=== PATIENT | female | born 1980 | race Two or more races ===

== ENCOUNTER 2019-02-02 18:32 | Inpatient (IN) | payer MEDICAID, OTHER ==
[~2019-02-02] VITALS: Ht 165.1 cm; Wt 80.4 kg
[2019-02-02] MEDS ORDERED: LISI-622 PO (20:28)
[2019-02-02] MEDS ORDERED: ATOR10TA84 PO (20:28)
[2019-02-02] MEDS ORDERED: METF-960 PO (20:29)
[2019-02-02 21:25] LABS: AMPHET/METH SCREEN,URINE NEGATIVE (NEGATIVE); BARBITURATE SCREEN, URINE NEGATIVE (NEGATIVE); BENZODIAZEPINES SCREEN,URINE NEGATIVE (NEGATIVE); CANNABINOID SCREEN,URINE NEGATIVE (NEGATIVE); COCAINE SCREEN,URINE NEGATIVE (NEGATIVE); METHADONE SCREEN, URINE NEGATIVE (NEGATIVE); OPIATE SCREEN,URINE NEGATIVE (NEGATIVE)
[2019-02-02 21:27] LABS: PHENCYCLIDINE SCREEN,URINE NEGATIVE (NEGATIVE)
[2019-02-02 21:27] LABS: GLUCOSE,POINT OF CARE 105 MG/DL (70-110)
[2019-02-02 21:39] LABS: BASOPHILS % (AUTO) 0.3 % (0.0-2.0); EOSINOPHILS % (AUTO) 2.2 % (1.0-6.0); HEMATOCRIT 39.6 % (36-46); HEMOGLOBIN 13.2 g/dL (12.0-16.0); LYMPHOCYTES % (AUTO) 28.5 % (22.0-44.0); MEAN CORPUSCULAR HEMOGLOBIN 28.7 pg (26.0-34.0); MEAN CORPUSCULAR HGB CONC 33.4 G/dL (31.0-37.0); MEAN CORPUSCULAR VOLUME 86 fL (80-100); MONOCYTES # (AUTO) 0.7 K/uL (0.1-1.0); MONOCYTES % (AUTO) 6.7 % (2.0-9.0); NEUTROPHILS # (AUTO) 6.5 K/uL (1.8-7.7); NEUTROPHILS % (AUTO) 62.3 % (40.0-70.0); PLATELET COUNT (AUTO) 304 K/uL (150-450); RED BLOOD CELL COUNT(AUTO) 4.61 MIL/uL (4.00-5.20); RED CELL DISTRIBUTION WIDTH 13.1 % (11.5-14.5)
[2019-02-02 21:42] LABS: ANION GAP 10 mmol/L (8-16); CALCIUM, TOTAL 9.1 mg/dL (8.8-10.5); CARBON DIOXIDE 27 mmol/L (22-29); CHLORIDE 103 mmol/L (98-107); CREATININE 0.65 mg/dL (0.60-1.30); GLOMERULAR FILTR. RATE CALC > 60 mL/min (>60); GLUCOSE,RANDOM 126 mg/dL (70-110); POTASSIUM 3.6 mmol/L (3.5-5.1); SODIUM SERUM 140 mmol/L (136-145); UREA NITROGEN, BLOOD 6 mg/dL (7-18)
[2019-02-02 21:54] LABS: ALANINE AMINOTRANSFERASE 31 U/L (12-78); ALBUMIN 4.4 g/dL (3.4-5.0); ALKALINE PHOSPHATASE 81 U/L (46-116); ASPARTATE AMINOTRANSFERASE 27 U/L (15-37); BILIRUBIN,TOTAL 0.5 mg/dL (0.1-1.0); HCG,QUANTITATIVE < 1 mIU/mL (0-6); TOTAL PROTEIN, SERUM 8.1 g/dL (6.4-8.2)
[2019-02-02] MEDS ORDERED: RISP4 PO (22:35)
[2019-02-02] MEDS ORDERED: BENZ1TAB10 PO (22:36)
[2019-02-02] MEDS ORDERED: GABA-531 PO (22:36)
[2019-02-02] MEDS ORDERED: LORazepam 2 MG TABLET PO PRN (22:45)
[2019-02-02] MEDS ORDERED: HALOPERIDOL 5 MG TABLET PO PRN (22:45)
[2019-02-02] MEDS ORDERED: ZOLPIDEM TARTRATE 10 MG TABLET PO PRN (22:45)
[2019-02-03 01:28] VITALS: BP 114/67
[2019-02-03] MEDS ORDERED: INFLUENZA VIRUS VACCINE QVS 2019-20 (3YR+)/PF 60 MCG/0.5 ML SYRINGE IM ONE (03:15)
[2019-02-03] MEDS ORDERED: PNEUMOCOCCAL VACCINE POLYVALENT 0.5 ML VIAL [PPSV23] IM ONE (03:15)
[2019-02-03 03:52] VITALS: BP 114/67
[2019-02-03] MEDS ORDERED: MetFORMIN HCL 500 MG TABLET PO SCH (07:30)
[2019-02-03 08:14] LABS: CHOL/HDL RATIO 3.3 (3.9-5.7); FREE T4 (FREE THYROXINE) 1.13 ng/dL (0.76-1.46); THYROID STIMULATING HORMONE 3.14 uIU/mL (0.36-3.74)
[2019-02-03] MEDS ORDERED: GABAPENTIN 300 MG CAPSULE PO SCH (09:00)
[2019-02-03 09:33] VITALS: BP 126/58
[2019-02-03 10:50] VITALS: BP 126/58
[2019-02-03] MEDS ORDERED: IBUPROFEN 400 MG TABLET PO PRN (11:15)
[2019-02-03] MEDS ORDERED: DOCUSATE SODIUM 100 MG CAPSULE PO PRN (11:15)
[2019-02-03] MEDS ORDERED: NICOTINE 14 MG/24 HOUR PATCH TD PRN (11:15)
[2019-02-03] MEDS ORDERED: GuaiFENesin/D-METHORPHAN [SUGAR-FREE] 200-20MG/10 ML SYRUP UDCUP PO PRN (11:15)
[2019-02-03] MEDS ORDERED: ALBUTEROL SULFATE HFA 90 MCG/PUFF 8 GM INHALER IH PRN (11:15)
[2019-02-03] MEDS ORDERED: PETROLATUM,WHITE 28 GM JELLY TP PRN (11:15)
[2019-02-03] MEDS ORDERED: MAGNESIUM HYDROXIDE SUSPENSION 30 ML UDCUP PO PRN (11:15)
[2019-02-03] MEDS ORDERED: ONDANSETRON HCL 4 MG TABLET PO PRN (11:15)
[2019-02-03] MEDS ORDERED: MAG HYDROX/AL HYDROX/SIMETH ES 30 ML SUSPENSION UDCUP PO PRN (11:15)
[2019-02-03] MEDS ORDERED: LOPERAMIDE HCL 2 MG CAPSULE PO PRN (11:15)
[2019-02-03] MEDS ORDERED: CloNIDine HCL 0.1 MG TABLET PO PRN (11:15)
[2019-02-03] MEDS: GABAPENTIN 300 MG CAPSULE PO SCH ×2 (12:22→16:55)
[2019-02-03] MEDS: LISINOPRIL 20 MG TABLET PO SCH ×2 (12:22→12:41)
[2019-02-03] MEDS: ATORVASTATIN CALCIUM 20 MG TABLET PO SCH (12:42)
[2019-02-03] MEDS: MetFORMIN HCL 500 MG TABLET PO SCH (16:55)
[2019-02-03 17:56] LABS: GLUCOMETER DEV NAME(LOC) 3EX.; GLUCOSE,POINT OF CARE 129 MG/DL (70-110)
[2019-02-03 19:07] VITALS: BP 129/57
[2019-02-03] MEDS: BENZTROPINE MESYLATE 1 MG TABLET PO SCH (20:22)
[2019-02-03] MEDS: RisperiDONE 4 MG TABLET PO SCH (20:22)
[2019-02-04 05:33] LABS: GLUCOMETER DEV NAME(LOC) 3EX.; GLUCOSE,POINT OF CARE 127 MG/DL (70-110)
[2019-02-04] MEDS: MetFORMIN HCL 500 MG TABLET PO SCH ×2 (06:35→16:24)
[2019-02-04 08:00] VITALS: BP 108/67
[2019-02-04] MEDS: ATORVASTATIN CALCIUM 20 MG TABLET PO SCH (09:52)
[2019-02-04] MEDS: GABAPENTIN 300 MG CAPSULE PO SCH ×2 (09:52→16:24)
[2019-02-04] MEDS: LISINOPRIL 20 MG TABLET PO SCH (09:53)
[2019-02-04 16:43] LABS: GLUCOMETER DEV NAME(LOC) 3EX.; GLUCOSE,POINT OF CARE 141 MG/DL (70-110)
[2019-02-04] MEDS: RisperiDONE 4 MG TABLET PO SCH (20:17)
[2019-02-04] MEDS: BENZTROPINE MESYLATE 1 MG TABLET PO SCH (20:17)
[2019-02-04 20:46] VITALS: BP 130/62
[2019-02-05 05:19] VITALS: BP 106/69
[2019-02-05 05:26] LABS: GLUCOMETER DEV NAME(LOC) 3EX.; GLUCOSE,POINT OF CARE 154 MG/DL (70-110)
[2019-02-05] MEDS: MetFORMIN HCL 500 MG TABLET PO SCH ×2 (06:33→16:43)
[2019-02-05 08:30] VITALS: BP 149/66
[2019-02-05] MEDS: ATORVASTATIN CALCIUM 20 MG TABLET PO SCH (09:43)
[2019-02-05] MEDS: GABAPENTIN 300 MG CAPSULE PO SCH ×2 (09:44→16:43)
[2019-02-05] MEDS: LISINOPRIL 20 MG TABLET PO SCH (09:44)
[2019-02-05 16:32] LABS: GLUCOMETER DEV NAME(LOC) 3EX.; GLUCOSE,POINT OF CARE 135 MG/DL (70-110)
[2019-02-05] MEDS: RisperiDONE 4 MG TABLET PO SCH (20:22)
[2019-02-05] MEDS: BENZTROPINE MESYLATE 1 MG TABLET PO SCH (20:22)
[2019-02-05 22:17] VITALS: BP 98/61
[2019-02-06 06:00] LABS: GLUCOMETER DEV NAME(LOC) 3EX.; GLUCOSE,POINT OF CARE 146 MG/DL (70-110)
[2019-02-06] MEDS: MetFORMIN HCL 500 MG TABLET PO SCH ×2 (06:49→18:12)
[2019-02-06] MEDS: ATORVASTATIN CALCIUM 20 MG TABLET PO SCH (09:23)
[2019-02-06] MEDS: GABAPENTIN 300 MG CAPSULE PO SCH ×2 (09:23→16:29)
[2019-02-06] MEDS: LISINOPRIL 20 MG TABLET PO SCH (09:23)
[2019-02-06 11:24] VITALS: BP 104/52
[2019-02-06 16:38] LABS: GLUCOMETER DEV NAME(LOC) 3EX.; GLUCOSE,POINT OF CARE 135 MG/DL (70-110)
[2019-02-06 18:58] VITALS: BP 115/78
[2019-02-06] MEDS: RisperiDONE 4 MG TABLET PO SCH (20:04)
[2019-02-06] MEDS: BENZTROPINE MESYLATE 1 MG TABLET PO SCH (20:04)
[2019-02-07 03:03] VITALS: BP 110/72
[2019-02-07 05:42] LABS: GLUCOMETER DEV NAME(LOC) 3EX.; GLUCOSE,POINT OF CARE 154 MG/DL (70-110)
[2019-02-07] MEDS: MetFORMIN HCL 500 MG TABLET PO SCH ×2 (06:47→17:26)
[2019-02-07 09:46] VITALS: BP 105/63
[2019-02-07] MEDS: LISINOPRIL 20 MG TABLET PO SCH (10:16)
[2019-02-07] MEDS: GABAPENTIN 300 MG CAPSULE PO SCH ×2 (10:16→16:35)
[2019-02-07] MEDS: ATORVASTATIN CALCIUM 20 MG TABLET PO SCH (10:16)
[2019-02-07 16:57] LABS: GLUCOMETER DEV NAME(LOC) 3EX.; GLUCOSE,POINT OF CARE 122 MG/DL (70-110)
[2019-02-07 19:22] VITALS: BP 112/60
[2019-02-07] MEDS: RisperiDONE 4 MG TABLET PO SCH (20:40)
[2019-02-07] MEDS: BENZTROPINE MESYLATE 1 MG TABLET PO SCH (20:41)
[2019-02-08 05:33] LABS: GLUCOMETER DEV NAME(LOC) 3EX.; GLUCOSE,POINT OF CARE 137 MG/DL (70-110)
[2019-02-08] MEDS: MetFORMIN HCL 500 MG TABLET PO SCH (07:01)
[2019-02-08 08:00] VITALS: BP 106/75
[2019-02-08] MEDS: LISINOPRIL 20 MG TABLET PO SCH (09:09)
[2019-02-08] MEDS: ATORVASTATIN CALCIUM 20 MG TABLET PO SCH (09:09)
[2019-02-08] MEDS: GABAPENTIN 300 MG CAPSULE PO SCH (09:09)
[2019-02-08] MEDS ORDERED: RISP4 PO ×2 (14:46→16:11)
[2019-02-08] MEDS ORDERED: BENZ1TAB10 PO ×2 (14:46→16:09)
[2019-02-08] MEDS ORDERED: GABA-531 PO ×2 (14:46→16:10)
== END 2019-02-08 16:30 | disposition home or self-care (01) | DRG 885 ==
LOC: EMS 18:35 → 3EI 23:30
DX: F20.0 Paranoid schizophrenia (principal); E11.65 Type 2 diabetes mellitus with hyperglycemia; R45.851 Suicidal ideations; E78.5 Hyperlipidemia, unspecified; E78.00 Pure hypercholesterolemia, unspecified; I10 Essential (primary) hypertension; Z79.899 Other long term (current) drug therapy; Z91.14 Patient's other noncompliance with medication regimen
CPT/HCPCS: 84439; 84443; G0480

== ENCOUNTER 2020-10-26 14:33 | Inpatient (IN) | payer MEDICAID, OTHER ==
[~2020-10-26] VITALS: Ht 170.2 cm; Wt 74.8 kg
[~2020-10-26 14:33] MED LIST: ATOR10TA84 PO; BENZ1TAB10 PO; GABA-1181 PO; GABA-531 PO; LISI-809 PO; METF-960 PO; RISP4TAB73 PO
[2020-10-26 15:26] LABS: BASOPHILS % (AUTO) 0.6 % (0.0-2.0); EOSINOPHILS % (AUTO) 1.7 % (1.0-6.0); HEMOGLOBIN 12.6 g/dL (12.0-16.0); LYMPHOCYTES # (AUTO) 2.9 K/uL (1.0-4.8); LYMPHOCYTES % (AUTO) 36.9 % (22.0-44.0); MEAN CORPUSCULAR HEMOGLOBIN 28.6 pg (26.0-34.0); MEAN CORPUSCULAR HGB CONC 32.4 G/dL (31.0-37.0); MEAN CORPUSCULAR VOLUME 88 fL (80-100); MONOCYTES # (AUTO) 0.7 K/uL (0.1-1.0); MONOCYTES % (AUTO) 9.2 % (2.0-9.0); NEUTROPHILS # (AUTO) 4.1 K/uL (1.8-7.7); NEUTROPHILS % (AUTO) 51.6 % (40.0-70.0); PLATELET COUNT (AUTO) 234 K/uL (150-450); RED BLOOD CELL COUNT(AUTO) 4.41 MIL/uL (4.00-5.20); RED CELL DISTRIBUTION WIDTH 14.8 % (11.5-14.5)
[2020-10-26 15:27] LABS: COVID AG,FIA SOURCE NASOPHARYNGEAL
[2020-10-26 15:43] LABS: ANION GAP 6 mmol/L (8-16); CALCIUM, TOTAL 8.8 mg/dL (8.8-10.5); CARBON DIOXIDE 31 mmol/L (22-29); CHLORIDE 103 mmol/L (98-107); CREATININE 0.58 mg/dL (0.60-1.30); GLOMERULAR FILTR. RATE CALC > 60 mL/min (>60); GLUCOSE,RANDOM 95 mg/dL (70-110); POTASSIUM 4.1 mmol/L (3.5-5.1); SODIUM SERUM 140 mmol/L (136-145); UREA NITROGEN, BLOOD 12 mg/dL (7-18)
[2020-10-26] MEDS ORDERED: LORazepam 2 MG TABLET PO PRN (15:45)
[2020-10-26] MEDS ORDERED: HALOPERIDOL 5 MG TABLET PO PRN (15:45)
[2020-10-26] MEDS ORDERED: ZOLPIDEM TARTRATE 10 MG TABLET PO PRN (15:45)
[2020-10-26 15:54] LABS: ALANINE AMINOTRANSFERASE 18 U/L (12-78); ALBUMIN 3.6 g/dL (3.4-5.0); ALKALINE PHOSPHATASE 53 U/L (46-116); ASPARTATE AMINOTRANSFERASE 8 U/L (15-37); BILIRUBIN,TOTAL 0.2 mg/dL (0.1-1.0); HCG,QUANTITATIVE < 1 mIU/mL (0-6); TOTAL PROTEIN, SERUM 7.7 g/dL (6.4-8.2)
[2020-10-26 16:00] LABS: AMPHET/METH SCREEN,URINE NEGATIVE (NEGATIVE); BARBITURATE SCREEN, URINE NEGATIVE (NEGATIVE); BENZODIAZEPINES SCREEN,URINE NEGATIVE (NEGATIVE); CANNABINOID SCREEN,URINE NEGATIVE (NEGATIVE); COCAINE SCREEN,URINE NEGATIVE (NEGATIVE); METHADONE SCREEN, URINE NEGATIVE (NEGATIVE); OPIATE SCREEN,URINE NEGATIVE (NEGATIVE)
[2020-10-26 16:04] LABS: PHENCYCLIDINE SCREEN,URINE NEGATIVE (NEGATIVE)
[2020-10-26 18:20] VITALS: BP 102/57
[2020-10-26] MEDS: ATORVASTATIN CALCIUM 20 MG TABLET PO SCH (20:04)
[2020-10-27 06:00] LABS: GLUCOMETER DEV NAME(LOC) 3EX.; GLUCOSE,POINT OF CARE 86 MG/DL (70-110)
[2020-10-27] MEDS: MetFORMIN HCL 500 MG TABLET PO SCH ×2 (06:49→17:10)
[2020-10-27] MEDS ORDERED: GuaiFENesin/D-METHORPHAN [SUGAR-FREE] 200-20MG/10 ML SYRUP UDCUP PO PRN (07:30)
[2020-10-27] MEDS ORDERED: IBUPROFEN 400 MG TABLET PO PRN (07:30)
[2020-10-27] MEDS ORDERED: MAGNESIUM HYDROXIDE SUSPENSION 30 ML UDCUP PO PRN (07:30)
[2020-10-27] MEDS ORDERED: PETROLATUM,WHITE 28 GM JELLY TP PRN (07:30)
[2020-10-27] MEDS ORDERED: ONDANSETRON HCL 4 MG TABLET PO PRN (07:30)
[2020-10-27] MEDS ORDERED: ALBUTEROL SULFATE HFA 90 MCG/PUFF 8 GM INHALER IH PRN (07:30)
[2020-10-27] MEDS ORDERED: LOPERAMIDE HCL 2 MG CAPSULE PO PRN (07:30)
[2020-10-27] MEDS ORDERED: CloNIDine HCL 0.1 MG TABLET PO PRN (07:30)
[2020-10-27] MEDS ORDERED: MAG HYDROX/AL HYDROX/SIMETH ES 30 ML SUSPENSION UDCUP PO PRN (07:30)
[2020-10-27] MEDS ORDERED: DOCUSATE SODIUM 100 MG CAPSULE PO PRN (07:30)
[2020-10-27] MEDS ORDERED: ACETAMINOPHEN 325 MG TABLET PO PRN (07:30)
[2020-10-27] MEDS ORDERED: NICOTINE 14 MG/24 HOUR PATCH TD PRN (07:30)
[2020-10-27 08:22] VITALS: BP 121/54
[2020-10-27] MEDS ORDERED: GABAPENTIN 300 MG CAPSULE PO SCH (09:00)
[2020-10-27 10:40] LABS: CHOL/HDL RATIO 2.7 (3.9-5.7); FREE T4 (FREE THYROXINE) 0.83 ng/dL (0.76-1.46); THYROID STIMULATING HORMONE 2.42 uIU/mL (0.36-3.74)
[2020-10-27] MEDS: RisperiDONE 3 MG TABLET PO SCH (16:14)
[2020-10-27] MEDS: BENZTROPINE MESYLATE 1 MG TABLET PO SCH (16:14)
[2020-10-27] MEDS: DIVALPROEX SODIUM 500 MG DR TABLET PO SCH ×2 (16:14→20:19)
[2020-10-27] MEDS: GABAPENTIN 300 MG CAPSULE PO SCH (16:14)
[2020-10-27 16:21] VITALS: BP 112/60
[2020-10-27 17:19] LABS: GLUCOMETER DEV NAME(LOC) 3EX.; GLUCOSE,POINT OF CARE 144 MG/DL (70-110)
[2020-10-27] MEDS: ATORVASTATIN CALCIUM 20 MG TABLET PO SCH (20:19)
[2020-10-28 06:16] LABS: GLUCOMETER DEV NAME(LOC) 3EX.; GLUCOSE,POINT OF CARE 108 MG/DL (70-110)
[2020-10-28] MEDS: MetFORMIN HCL 500 MG TABLET PO SCH ×2 (06:30→17:20)
[2020-10-28 08:50] VITALS: BP 110/52
[2020-10-28] MEDS: GABAPENTIN 300 MG CAPSULE PO SCH ×2 (09:46→16:33)
[2020-10-28] MEDS: RisperiDONE 3 MG TABLET PO SCH ×2 (09:47→16:33)
[2020-10-28] MEDS: BENZTROPINE MESYLATE 1 MG TABLET PO SCH ×2 (09:47→16:33)
[2020-10-28] MEDS: DIVALPROEX SODIUM 500 MG DR TABLET PO SCH ×3 (09:47→20:12)
[2020-10-28 16:00] VITALS: BP 108/54
[2020-10-28 16:43] LABS: GLUCOMETER DEV NAME(LOC) 3EX.; GLUCOSE,POINT OF CARE 98 MG/DL (70-110)
[2020-10-28] MEDS: ATORVASTATIN CALCIUM 20 MG TABLET PO SCH (20:12)
[2020-10-29 05:01] VITALS: BP 95/54
[2020-10-29 05:23] LABS: GLUCOMETER DEV NAME(LOC) 3EX.; GLUCOSE,POINT OF CARE 99 MG/DL (70-110)
[2020-10-29] MEDS: MetFORMIN HCL 500 MG TABLET PO SCH (06:50)
[2020-10-29 08:17] VITALS: BP 98/56
[2020-10-29] MEDS: GABAPENTIN 300 MG CAPSULE PO SCH (09:12)
[2020-10-29] MEDS: BENZTROPINE MESYLATE 1 MG TABLET PO SCH (09:12)
[2020-10-29] MEDS: RisperiDONE 3 MG TABLET PO SCH (09:12)
[2020-10-29] MEDS: DIVALPROEX SODIUM 500 MG DR TABLET PO SCH (09:12)
[2020-10-29] MEDS ORDERED: ATOR20TA86 PO ×2 (13:52→13:53)
[2020-10-29] MEDS ORDERED: BENZ1TAB10 PO (13:55)
[2020-10-29] MEDS ORDERED: DIVA-112 PO ×2 (13:57)
[2020-10-29] MEDS ORDERED: GABA-1181 PO (13:58)
[2020-10-29] MEDS ORDERED: RISP3TAB35 PO (13:58)
== END 2020-10-29 15:03 | disposition home or self-care (01) | DRG 750 ==
LOC: EMS 14:38 → 3EI 17:27
DX: F20.0 Paranoid schizophrenia (principal); R45.851 Suicidal ideations; E11.9 Type 2 diabetes mellitus without complications; Z20.822 Contact with and (suspected) exposure to COVID-19; I10 Essential (primary) hypertension; E78.5 Hyperlipidemia, unspecified; Z79.899 Other long term (current) drug therapy
CPT/HCPCS: 80053; 80061; 82962; 84439; 84443; 84702; 85025; 99285; G0480

== ENCOUNTER 2020-11-01 08:07 | Inpatient (IN) | payer MEDICAID, OTHER ==
[~2020-11-01] VITALS: Ht 167.6 cm; Wt 75.7 kg
[~2020-11-01 08:07] MED LIST changes: -ATOR10TA84 PO; +ATOR20TA86 PO; +DIVA-112 PO; -GABA-531 PO; -LISI-809 PO; +RISP3TAB35 PO; -RISP4TAB73 PO
[2020-11-01 11:18] LABS: AMPHET/METH SCREEN,URINE NEGATIVE (NEGATIVE); BARBITURATE SCREEN, URINE NEGATIVE (NEGATIVE); BENZODIAZEPINES SCREEN,URINE NEGATIVE (NEGATIVE); CANNABINOID SCREEN,URINE NEGATIVE (NEGATIVE); COCAINE SCREEN,URINE NEGATIVE (NEGATIVE); METHADONE SCREEN, URINE NEGATIVE (NEGATIVE); OPIATE SCREEN,URINE NEGATIVE (NEGATIVE)
[2020-11-01 11:23] LABS: PHENCYCLIDINE SCREEN,URINE NEGATIVE (NEGATIVE)
[2020-11-01 11:24] LABS: BASOPHILS % (AUTO) 0.3 % (0.0-2.0); EOSINOPHILS % (AUTO) 0.7 % (1.0-6.0); HEMATOCRIT 39.9 % (36-46); HEMOGLOBIN 12.9 g/dL (12.0-16.0); LYMPHOCYTES # (AUTO) 2.4 K/uL (1.0-4.8); LYMPHOCYTES % (AUTO) 30.2 % (22.0-44.0); MEAN CORPUSCULAR HEMOGLOBIN 28.4 pg (26.0-34.0); MEAN CORPUSCULAR HGB CONC 32.4 G/dL (31.0-37.0); MEAN CORPUSCULAR VOLUME 88 fL (80-100); MONOCYTES # (AUTO) 0.8 K/uL (0.1-1.0); MONOCYTES % (AUTO) 9.5 % (2.0-9.0); NEUTROPHILS # (AUTO) 4.8 K/uL (1.8-7.7); NEUTROPHILS % (AUTO) 59.3 % (40.0-70.0); PLATELET COUNT (AUTO) 221 K/uL (150-450); RED BLOOD CELL COUNT(AUTO) 4.55 MIL/uL (4.00-5.20); RED CELL DISTRIBUTION WIDTH 14.8 % (11.5-14.5)
[2020-11-01 11:28] LABS: ANION GAP 8 mmol/L (8-16); CALCIUM, TOTAL 8.9 mg/dL (8.8-10.5); CARBON DIOXIDE 27 mmol/L (22-29); CHLORIDE 105 mmol/L (98-107); CREATININE 0.53 mg/dL (0.60-1.30); GLOMERULAR FILTR. RATE CALC > 60 mL/min (>60); GLUCOSE,RANDOM 86 mg/dL (70-110); POTASSIUM 4.1 mmol/L (3.5-5.1); SODIUM SERUM 140 mmol/L (136-145); UREA NITROGEN, BLOOD 14 mg/dL (7-18)
[2020-11-01 11:44] LABS: ALANINE AMINOTRANSFERASE 16 U/L (12-78); ALBUMIN 3.7 g/dL (3.4-5.0); ALKALINE PHOSPHATASE 47 U/L (46-116); ASPARTATE AMINOTRANSFERASE 7 U/L (15-37); BILIRUBIN,TOTAL 0.3 mg/dL (0.1-1.0); HCG,QUANTITATIVE < 1 mIU/mL (0-6); TOTAL PROTEIN, SERUM 7.9 g/dL (6.4-8.2)
[2020-11-01] MEDS ORDERED: ZOLPIDEM TARTRATE 10 MG TABLET PO PRN (11:45)
[2020-11-01] MEDS ORDERED: LORazepam 2 MG TABLET PO PRN (11:45)
[2020-11-01] MEDS ORDERED: HALOPERIDOL 5 MG TABLET PO PRN (11:45)
[2020-11-01 13:03] LABS: COVID AG,FIA SOURCE NASOPHARYNGEAL
[2020-11-01 17:12] LABS: GLUCOMETER DEV NAME(LOC) BV2S.; GLUCOSE,POINT OF CARE 78 MG/DL (70-110)
[2020-11-01 17:29] VITALS: BP 105/60
[2020-11-01] MEDS ORDERED: PNEUMOCOCCAL VACCINE POLYVALENT 0.5 ML VIAL [PPSV23] IM. ONE (17:30)
[2020-11-01] MEDS ORDERED: GLUCAGON,HUMAN RECOMBINANT 1 MG VIAL IM PRN (21:30)
[2020-11-02 00:57] VITALS: BP 103/62
[2020-11-02 06:25] LABS: GLUCOMETER DEV NAME(LOC) BV2S.; GLUCOSE,POINT OF CARE 106 MG/DL (70-110)
[2020-11-02] MEDS: MetFORMIN HCL 500 MG TABLET PO SCH ×2 (06:58→16:15)
[2020-11-02] MEDS ORDERED: GuaiFENesin/D-METHORPHAN [SUGAR-FREE] 200-20MG/10 ML SYRUP UDCUP PO PRN (07:00)
[2020-11-02] MEDS ORDERED: IBUPROFEN 400 MG TABLET PO PRN (07:00)
[2020-11-02] MEDS ORDERED: MAGNESIUM HYDROXIDE SUSPENSION 30 ML UDCUP PO PRN (07:00)
[2020-11-02] MEDS ORDERED: CloNIDine HCL 0.1 MG TABLET PO PRN (07:00)
[2020-11-02] MEDS ORDERED: PETROLATUM,WHITE 28 GM JELLY TP PRN (07:00)
[2020-11-02] MEDS ORDERED: ACETAMINOPHEN 325 MG TABLET PO PRN (07:00)
[2020-11-02] MEDS ORDERED: NICOTINE 14 MG/24 HOUR PATCH TD PRN (07:00)
[2020-11-02] MEDS ORDERED: ALBUTEROL SULFATE HFA 90 MCG/PUFF 8 GM INHALER IH PRN (07:00)
[2020-11-02] MEDS ORDERED: DOCUSATE SODIUM 100 MG CAPSULE PO PRN (07:00)
[2020-11-02] MEDS ORDERED: ONDANSETRON HCL 4 MG TABLET PO PRN (07:00)
[2020-11-02] MEDS ORDERED: MAG HYDROX/AL HYDROX/SIMETH ES 30 ML SUSPENSION UDCUP PO PRN (07:00)
[2020-11-02 08:08] LABS: HEMOGLOBIN A1C 6.7 % (3.8-5.6)
[2020-11-02 08:18] LABS: CHOL/HDL RATIO 2.8 (3.9-5.7)
[2020-11-02 08:22] VITALS: BP 104/40
[2020-11-02] MEDS: GABAPENTIN 300 MG CAPSULE PO SCH ×2 (08:39→16:15)
[2020-11-02] MEDS: LISINOPRIL 20 MG TABLET PO SCH (08:41)
[2020-11-02 08:46] LABS: FREE T4 (FREE THYROXINE) 0.88 ng/dL (0.76-1.46); THYROID STIMULATING HORMONE 3.04 uIU/mL (0.36-3.74)
[2020-11-02] MEDS ORDERED: ATORVASTATIN CALCIUM 20 MG TABLET PO SCH (09:00)
[2020-11-02] MEDS: RisperiDONE 3 MG TABLET PO SCH ×2 (10:15→16:15)
[2020-11-02] MEDS: DIVALPROEX SODIUM 500 MG DR TABLET PO SCH ×3 (10:16→20:02)
[2020-11-02 11:18] LABS: GLUCOMETER DEV NAME(LOC) BV2S.; GLUCOSE,POINT OF CARE 81 MG/DL (70-110)
[2020-11-02 16:29] VITALS: BP 103/48
[2020-11-02 17:13] LABS: GLUCOMETER DEV NAME(LOC) BV2S.; GLUCOSE,POINT OF CARE 152 MG/DL (70-110)
[2020-11-02 17:13] LABS: GLUCOMETER DEV NAME(LOC) BV2S.; GLUCOSE,POINT OF CARE 127 MG/DL (70-110)
[2020-11-02] MEDS: ATORVASTATIN CALCIUM 20 MG TABLET PO SCH (20:02)
[2020-11-02] MEDS: INSULIN LISPRO 100 UNITS/ML SQ PRN (20:25)
[2020-11-02 20:34] LABS: GLUCOMETER DEV NAME(LOC) BV2S.; GLUCOSE,POINT OF CARE 149 MG/DL (70-110)
[2020-11-03 01:28] VITALS: BP 104/61
[2020-11-03 02:00] VITALS: BP 111/62
[2020-11-03] MEDS: MetFORMIN HCL 500 MG TABLET PO SCH ×2 (06:25→16:13)
[2020-11-03 06:36] LABS: GLUCOMETER DEV NAME(LOC) BV2S.; GLUCOSE,POINT OF CARE 117 MG/DL (70-110)
[2020-11-03 08:04] VITALS: BP 119/61
[2020-11-03] MEDS: RisperiDONE 3 MG TABLET PO SCH ×2 (08:39→16:13)
[2020-11-03] MEDS: DIVALPROEX SODIUM 500 MG DR TABLET PO SCH ×3 (08:39→20:16)
[2020-11-03] MEDS: BENZTROPINE MESYLATE 1 MG TABLET PO SCH ×2 (08:39→16:13)
[2020-11-03] MEDS: GABAPENTIN 300 MG CAPSULE PO SCH ×2 (08:39→16:13)
[2020-11-03] MEDS: LISINOPRIL 20 MG TABLET PO SCH (08:39)
[2020-11-03] MEDS: LOPERAMIDE HCL 2 MG CAPSULE PO PRN ×2 (10:16→13:40)
[2020-11-03 16:11] VITALS: BP 101/65
[2020-11-03 16:30] LABS: GLUCOMETER DEV NAME(LOC) BV2S.; GLUCOSE,POINT OF CARE 208 MG/DL (70-110)
[2020-11-03] MEDS: INSULIN LISPRO 100 UNITS/ML SQ PRN (16:39)
[2020-11-03] MEDS: ATORVASTATIN CALCIUM 20 MG TABLET PO SCH (20:16)
[2020-11-03 20:37] LABS: GLUCOMETER DEV NAME(LOC) BV2S.; GLUCOSE,POINT OF CARE 101 MG/DL (70-110)
[2020-11-04 00:57] VITALS: BP 103/60
[2020-11-04 06:15] LABS: GLUCOMETER DEV NAME(LOC) BV2S.; GLUCOSE,POINT OF CARE 112 MG/DL (70-110)
[2020-11-04] MEDS: MetFORMIN HCL 500 MG TABLET PO SCH ×2 (06:48→18:01)
[2020-11-04 07:52] LABS: BASOPHILS % (AUTO) 0.5 % (0.0-2.0); EOSINOPHILS % (AUTO) 2.1 % (1.0-6.0); HEMATOCRIT 40.1 % (36-46); LYMPHOCYTES # (AUTO) 2.8 K/uL (1.0-4.8); LYMPHOCYTES % (AUTO) 40.9 % (22.0-44.0); MEAN CORPUSCULAR HEMOGLOBIN 28.6 pg (26.0-34.0); MEAN CORPUSCULAR HGB CONC 32.4 G/dL (31.0-37.0); MEAN CORPUSCULAR VOLUME 88 fL (80-100); MONOCYTES # (AUTO) 0.6 K/uL (0.1-1.0); MONOCYTES % (AUTO) 8.4 % (2.0-9.0); NEUTROPHILS # (AUTO) 3.4 K/uL (1.8-7.7); NEUTROPHILS % (AUTO) 48.1 % (40.0-70.0); PLATELET COUNT (AUTO) 216 K/uL (150-450); RED BLOOD CELL COUNT(AUTO) 4.54 MIL/uL (4.00-5.20)
[2020-11-04 08:03] VITALS: BP 106/47
[2020-11-04 08:19] LABS: ANION GAP 10 mmol/L (8-16); CALCIUM, TOTAL 8.7 mg/dL (8.8-10.5); CARBON DIOXIDE 29 mmol/L (22-29); CHLORIDE 104 mmol/L (98-107); CREATININE 0.53 mg/dL (0.60-1.30); GLOMERULAR FILTR. RATE CALC > 60 mL/min (>60); GLUCOSE,RANDOM 93 mg/dL (70-110); POTASSIUM 4.2 mmol/L (3.5-5.1); SODIUM SERUM 143 mmol/L (136-145); UREA NITROGEN, BLOOD 11 mg/dL (7-18)
[2020-11-04] MEDS: LISINOPRIL 20 MG TABLET PO SCH (09:00)
[2020-11-04 09:45] VITALS: BP 99/61
[2020-11-04] MEDS: DIVALPROEX SODIUM 500 MG DR TABLET PO SCH ×3 (09:48→20:46)
[2020-11-04] MEDS: MULTIVITAMINS WITH MINERALS, THERAPEUTIC TABLET PO SCH (09:48)
[2020-11-04] MEDS: GABAPENTIN 300 MG CAPSULE PO SCH ×2 (09:48→17:00)
[2020-11-04] MEDS: BENZTROPINE MESYLATE 1 MG TABLET PO SCH ×2 (09:48→18:00)
[2020-11-04] MEDS: RisperiDONE 3 MG TABLET PO SCH ×2 (09:48→17:00)
[2020-11-04] MEDS: INSULIN LISPRO 100 UNITS/ML SQ PRN (10:57)
[2020-11-04 11:18] LABS: GLUCOMETER DEV NAME(LOC) BV2S.; GLUCOSE,POINT OF CARE 141 MG/DL (70-110)
[2020-11-04 16:45] LABS: GLUCOMETER DEV NAME(LOC) BV2S.; GLUCOSE,POINT OF CARE 126 MG/DL (70-110)
[2020-11-04 17:05] VITALS: BP 101/47
[2020-11-04] MEDS: ATORVASTATIN CALCIUM 20 MG TABLET PO SCH (20:46)
[2020-11-04 20:55] VITALS: BP 110/80
[2020-11-04 21:17] LABS: GLUCOMETER DEV NAME(LOC) BV2S.; GLUCOSE,POINT OF CARE 115 MG/DL (70-110)
[2020-11-05 00:42] VITALS: BP 107/58
[2020-11-05] MEDS: MetFORMIN HCL 500 MG TABLET PO SCH ×2 (06:34→16:27)
[2020-11-05 06:43] LABS: GLUCOMETER DEV NAME(LOC) BV2S.; GLUCOSE,POINT OF CARE 107 MG/DL (70-110)
[2020-11-05 08:28] VITALS: BP 103/66
[2020-11-05] MEDS: RisperiDONE 3 MG TABLET PO SCH ×2 (08:55→16:28)
[2020-11-05] MEDS: MULTIVITAMINS WITH MINERALS, THERAPEUTIC TABLET PO SCH (08:55)
[2020-11-05] MEDS: DIVALPROEX SODIUM 500 MG DR TABLET PO SCH ×3 (08:55→20:38)
[2020-11-05] MEDS: GABAPENTIN 300 MG CAPSULE PO SCH ×2 (08:55→16:28)
[2020-11-05] MEDS: LISINOPRIL 20 MG TABLET PO SCH (08:55)
[2020-11-05] MEDS: BENZTROPINE MESYLATE 1 MG TABLET PO SCH ×2 (08:55→16:28)
[2020-11-05 11:40] LABS: GLUCOMETER DEV NAME(LOC) BV2S.; GLUCOSE,POINT OF CARE 137 MG/DL (70-110)
[2020-11-05 16:03] VITALS: BP 105/70
[2020-11-05 16:38] LABS: GLUCOMETER DEV NAME(LOC) BV2S.; GLUCOSE,POINT OF CARE 137 MG/DL (70-110)
[2020-11-05 20:33] LABS: GLUCOMETER DEV NAME(LOC) BV2S.; GLUCOSE,POINT OF CARE 115 MG/DL (70-110)
[2020-11-05] MEDS: ATORVASTATIN CALCIUM 20 MG TABLET PO SCH (20:38)
[2020-11-06 04:07] VITALS: BP 108/67
[2020-11-06] MEDS: MetFORMIN HCL 500 MG TABLET PO SCH (06:12)
[2020-11-06 06:48] LABS: GLUCOMETER DEV NAME(LOC) BV2S.; GLUCOSE,POINT OF CARE 121 MG/DL (70-110)
[2020-11-06 07:30] LABS: COVID AG,FIA SOURCE NASOPHARYNGEAL
[2020-11-06 08:00] VITALS: BP 110/70
[2020-11-06] MEDS: BENZTROPINE MESYLATE 1 MG TABLET PO SCH (08:03)
[2020-11-06] MEDS: RisperiDONE 3 MG TABLET PO SCH (08:03)
[2020-11-06] MEDS: GABAPENTIN 300 MG CAPSULE PO SCH (08:03)
[2020-11-06] MEDS: DIVALPROEX SODIUM 500 MG DR TABLET PO SCH (08:03)
[2020-11-06] MEDS: LISINOPRIL 20 MG TABLET PO SCH (08:03)
[2020-11-06] MEDS: MULTIVITAMINS WITH MINERALS, THERAPEUTIC TABLET PO SCH (08:03)
[2020-11-06 08:10] VITALS: BP 110/70
[2020-11-06] MEDS ORDERED: BENZ1TAB10 PO (10:29)
[2020-11-06] MEDS ORDERED: RISP3TAB35 PO (10:29)
[2020-11-06] MEDS ORDERED: GABA-1181 PO (10:29)
[2020-11-06] MEDS ORDERED: DIVA-112 PO (10:29)
[2020-11-06] MEDS ORDERED: ATOR20TA86 PO (10:29)
[2020-11-06] MEDS ORDERED: METF-960 PO (10:29)
[2020-11-06 11:06] LABS: GLUCOMETER DEV NAME(LOC) BV2S.; GLUCOSE,POINT OF CARE 122 MG/DL (70-110)
[2020-11-06] MEDS ORDERED: LISI-662 PO (11:39)
== END 2020-11-06 12:43 | disposition home or self-care (01) | DRG 750 ==
LOC: EMS 08:10 → B2S 15:01
DX: F25.0 Schizoaffective disorder, bipolar type (principal); E11.9 Type 2 diabetes mellitus without complications; E78.5 Hyperlipidemia, unspecified; F10.10 Alcohol abuse, uncomplicated; F39 Unspecified mood [affective] disorder; Z20.822 Contact with and (suspected) exposure to COVID-19; I10 Essential (primary) hypertension; Z59.0 Homelessness; Z79.899 Other long term (current) drug therapy
CPT/HCPCS: 80048; 80053; 80061; 80164; 82962; 83036; 84439; 84443; 84702; 85025; 87081; 90732; 99285; G0480